=== PATIENT | male | born 1980 | race Caucasian/White ===

== ENCOUNTER 2020-09-26 07:27 | Emergency (ER) | payer OTHER ==
--- NOTE | 2020-09-26 07:50 | EDM.PDOC ---
ED HPI GENERAL MEDICAL PROBLEM - General Chief Complaint: Cardiovascular Problem Stated Complaint: RAPID HEART RATE Time Seen by Provider: 09/26/20 07:43 Source of Information: Reports: Patient History Limitations: Reports: No Limitations - History of Present Illness INITIAL COMMENTS - FREE TEXT/NARRATIVE: 40-year-old male presents to the ED with reports of a central chest pressure heaviness since yesterday afternoon about 1400 hrs. Associated with a feeling of heart racing and he has a pulse oximeter that reports his heart rate as high as into the 130s. It is usually worse with walking and doing a little bit more exertion. Yesterday felt like the slightly dizzy with a rapid heart rate. No think no syncopal events. Of note the patient had COVID-19 illness back in 2019. He has noticed increased heart rate off and on since that time. He has been monitored with a Holter monitor for a week in the past. I believe he is an accurate had an echocardiogram and cardiac work-up and his events always seem to be more of a sinus tachycardia. This morning he has mild central chest discomfort. No radiation to his neck back shoulders. He has some chronic cervical neck pain that radiates into his right superior shoulder along the superior portion of the trapezius. No nausea vomiting or diarrhea. Eats a nice regular diet. Does not use any dietary stimulants such as caffeine drinks etc. He states when he placed his pulse oximeter this morning when he woke up his heart rate was as high as 130 at home. Therefore he elected to come into the ED. he denies any fever chills cough or shortness of breath. Onset: Other (Is off and on since COVID-19 illness and January of this year.) Duration: Chronic, Intermittent, Waxing/Waning Location: Reports: Chest (Feeling of rapid heart rate up as high as 130s to 140s.) Quality: Reports: Ache, Pressure (Associated central chest ache pressure discomfort) Severity: Moderate (that comes and goes.) Improves with: Reports: None Worsens with: Reports: None Context: Denies: Activity, Exercise (Nothing he seems to do makes it better or worse.), Lifting, Sick Contact, Trauma, Other Associated Symptoms: Reports: Other ([place] a little dizzy yesterday with his heart going fast.). Denies: No Other Symptoms, Confusion, Chest Pain, Cough, cough w sputum, Diaphoresis, Fever/Chills, Headaches, Loss of Appetite, Malaise, Nausea/Vomiting, Rash, Seizure, Shortness of Breath, Syncope Treatments CONTINUITY COORDINATOR: Reports: Other (see below) (None.) Chest Pain Score (Numeric/FACES): 2 - Related Data Allergies Allergy/AdvReac Type Severity Reaction Status Date / Time No Known Allergies Allergy Verified 09/26/20 07:37 Home Meds: Home Meds Mesalamine [Apriso] 1,500 mg PO DAILY 10/07/18 [History] Past Medical History HEENT History: Reports: Allergic Rhinitis Cardiovascular History: Reports: Other (See Below) Other Cardiovascular History: Tachycardia since getting COVID in January 2020. Respiratory History: Reports: None Gastrointestinal History: Reports: Other (See Below) Other Gastrointestinal History: Ulcerative colitis--takes mesalamine for this. Genitourinary History: Reports: None, Other (See Below) TESTING SPECIALIST History: Reports: None Musculoskeletal History: Reports: Other (See Below) Other Musculoskeletal History: Carpal tunnel syndrome Neurological History: Reports: None Psychiatric History: Reports: PTSD Endocrine/Metabolic History: Reports: None Hematologic History: Reports: None Immunologic History: Reports: None Oncologic (Cancer) History: Reports: None Dermatologic History: Reports: None - Past Surgical History HEENT Surgical History: Reports: Tonsillectomy Male Surgical History: Reports: Vasectomy Musculoskeletal Surgical History: Reports: Carpal Tunnel Social & Family History - Tobacco Use Tobacco Use Status *Q: Never Tobacco User - Caffeine Use Caffeine Use: Reports: None - Recreational Drug Use Recreational Drug Use: No - Living Situation & Occupation Living situation: Reports: Occupation: Employed (Self-employed.) ED ROS GENERAL - Review of Systems Review Of Systems: See Below Constitutional: Denies: Fever, Chills, Malaise, Weakness, Fatigue, Decreased Appetite, Weight Loss HEENT: Reports: No Symptoms Respiratory: Reports: No Symptoms. Denies: Shortness of Breath, Wheezing, Cough, Sputum Cardiovascular: Reports: Chest Pain, Lightheadedness, Palpitations (He is aware of rapid heart rate throughout the day.). Denies: Blood Pressure Problem (Intermittent central chest pressure discomfort.), Claudication, Dyspnea on Exertion, Edema (Associate with rapid heart rate yesterday.), Orthopnea Endocrine: Reports: No Symptoms GI/Abdominal: Reports: No Symptoms : Reports: No Symptoms Musculoskeletal: Reports: Neck Pain (Cervical neck pain that radiates towards his right upper shoulder across the top of his trapezius muscle.) Skin: Reports: No Symptoms Neurological: Reports: No Symptoms Psychiatric: Reports: No Symptoms Hematologic/Lymphatic: Reports: No Symptoms Immunologic: Reports: No Symptoms ED EXAM, GENERAL - Physical Exam Exam: See Below Exam Limited By: No Limitations General Appearance: Alert, WD/WN, Mild Distress (Oddly anxious.), Other (Temperature is 36.3 heart rate 103 in sinus respiratory to 16 BP 127/91 with a pulse ox of 98% room air.) Eye Exam: Bilateral Eye: Normal Inspection, PERRL Throat/Mouth: Normal Inspection, Normal Lips, Normal Oropharynx Head: Atraumatic, Normocephalic Neck: Normal Inspection, Supple, Non-Tender, Full Range of Motion. No: Carotid Bruit, Lymphadenopathy (L), Lymphadenopathy (R), Thyromegaly Respiratory/Chest: No Respiratory Distress, Lungs Clear, Normal Breath Sounds, No Accessory Muscle Use, Chest Non-Tender, Other (Evidence of previous fracture right clavicle) Cardiovascular: Normal Peripheral Pulses (.), Regular Rate, Rhythm, No Edema, No Gallop, No Murmur, No Rub, Tachycardia (The time I seen him his heart rate was down to 98/min.) Peripheral Pulses: 3+: Carotid (L), Carotid (R), Posterior Tibial (L), Posterior Tibial (R), Dorsalis Pedis (L), Dorsalis Pedis (R) GI/Abdominal: Normal Bowel Sounds, Soft, Non-Tender, No Organomegaly, No Abnormal Bruit, No Mass, Pelvis Stable, Other (A void abdomen). No: Guarding, R igid, Rebound Back Exam: Normal Inspection, Full Range of Motion. No: CVA Tenderness (L), CVA Tenderness (R) Extremities: Normal Inspection, Normal Range of Motion, Non-Tender Neurological: Alert, Oriented, CN II-XII Intact, Normal Cognition Psychiatric: Normal Affect, Normal Mood, Anxious (Perhaps mildly anxious.) Skin Exam: Warm, Dry, Intact, Normal Color, No Rash #1 Interpretation EKG Date: 09/26/20 Time: 07:35 Rhythm: NSR Rate (Beats/Min): 99 Morse: LAD-Left Morse Deviation (-45 degrees) P-Wave: Enlarged (Consider left atrial hypertrophy.) QRS: Other (RSR prime wave V1 V2 consider normal variant. Early R wave transition consider septal hypertrophy pattern.) ST-T: Depressed (There is ST segment depression in leads II, III and aVF concerning for possible inferior wall ischemic change. T wave inversion in aVL nonspecific) EKG Interpretation Comments: Abnormal ECG Course - Vital Signs Last Recorded V/S: Last Vital Signs Temp 36.3 C 09/26/20 07:33 Pulse 98 09/26/20 08:15 Resp 16 09/26/20 07:33 BP 105/76 09/26/20 08:15 Pulse Ox 98 09/26/20 07:33 - Orders/Labs/Meds Orders: Active Orders 24 hr Category Date Time Status EKG 12 Lead [EKG Documentation Completion] [RC] STAT Care 09/26/20 07:38 Active CXR [Chest 1V Frontal] [CR] Stat Exams 09/26/20 07:37 Taken FREE T3 [REF] Stat Lab 09/26/20 07:35 Received Labs: Laboratory Tests 09/26/20 09/26/20 09/26/20 Range/Units 07:35 07:35 07:35 WBC 4.88 (4.23-9.07) K/mm3 RBC 5.08 (4.63-6.08) M/mm3 Hgb 15.5 (13.7-17.5) gm/dl Hct 43.8 (40.1-51.0) % MCV 86.2 (79.0-92.2) fl MCH 30.5 (25.7-32.2) pg MCHC 35.4 (32.2-35.5) g/dl RDW Std Deviation 37.9 (35.1-43.9) fL Plt Count 183 (163-337) K/mm3 MPV 10.6 (9.4-12.3) fl Neut % (Auto) 66.0 (34.0-67.9) % Lymph % (Auto) 23.4 (21.8-53.1) % Harris % (Auto) 8.6 (5.3-12.2) % Eos % (Auto) 1.6 (0.8-7.0) Baso % (Auto) 0.4 (0.1-1.2) % Neut # (Auto) 3.22 (1.78-5.38) K/mm3 Lymph # (Auto) 1.14 L (1.32-3.57) K/mm3 Harris # (Auto) 0.42 (0.30-0.82) K/mm3 Eos # (Auto) 0.08 (0.04-0.54) K/mm3 Baso # (Auto) 0.02 (0.01-0.08) K/mm3 Sodium 139 (136-145) mEq/L Potassium 4.2 (3.5-5.1) mEq/L Chloride 101 (98-107) mEq/L Carbon Dioxide 29 (21-32) mEq/L Anion Gap 13.2 (5-15) BUN 18 (7-18) mg/dL Creatinine 1.1 (0.7-1.3) mg/dL Est Cr Clr Drug Dosing 75.77 mL/min Estimated GFR (MDRD) > 60 (>60) mL/min BUN/Creatinine Ratio 16.4 (14-18) Glucose 99 (74-106) mg/dL Calcium 9.3 (8.5-10.1) mg/dL Magnesium (1.8-2.4) mg/dl Total Bilirubin 1.0 (0.2-1.0) mg/dL AST 23 (15-37) U/L ALT 36 (16-63) U/L Alkaline Phosphatase 90 (46-116) U/L CK-MB (CK-2) (0-3.6) ng/ml Troponin I < 0.017 (0.00-0.056) ng/mL C-Reactive Protein (<1.0) mg/dL NT-Pro-B Natriuret Pep 20 (0-125) pg/mL Total Protein 7.7 (6.4-8.2) g/dl Albumin 4.3 (3.4-5.0) g/dl Globulin 3.4 gm/dL Albumin/Globulin Ratio 1.3 (1-2) Free T4 (0.76-1.46) ng/dL TSH 3rd Generation (0.358-3.74) uIU/mL 09/26/20 Range/Units 07:35 WBC (4.23-9.07) K/mm3 RBC (4.63-6.08) M/mm3 Hgb (13.7-17.5) gm/dl Hct (40.1-51.0) % MCV (79.0-92.2) fl MCH (25.7-32.2) pg MCHC (32.2-35.5) g/dl RDW Std Deviation (35.1-43.9) fL Plt Count (163-337) K/mm3 MPV (9.4-12.3) fl Neut % (Auto) (34.0-67.9) % Lymph % (Auto) (21.8-53.1) % Harris % (Auto) (5.3-12.2) % Eos % (Auto) (0.8-7.0) Baso % (Auto) (0.1-1.2) % Neut # (Auto) (1.78-5.38) K/mm3 Lymph # (Auto) (1.32-3.57) K/mm3 Harris # (Auto) (0.30-0.82) K/mm3 Eos # (Auto) (0.04-0.54) K/mm3 Baso # (Auto) (0.01-0.08) K/mm3 Sodium (136-145) mEq/L Potassium (3.5-5.1) mEq/L Chloride (98-107) mEq/L Carbon Dioxide (21-32) mEq/L Anion Gap (5-15) BUN (7-18) mg/dL Creatinine (0.7-1.3) mg/dL Est Cr Clr Drug Dosing mL/min Estimated GFR (MDRD) (>60) mL/min BUN/Creatinine Ratio (14-18) Glucose (74-106) mg/dL Calcium (8.5-10.1) mg/dL Magnesium 2.0 (1.8-2.4) mg/dl Total Bilirubin (0.2-1.0) mg/dL AST (15-37) U/L ALT (16-63) U/L Alkaline Phosphatase (46-116) U/L CK-MB (CK-2) 1.1 (0-3.6) ng/ml Troponin I (0.00-0.056) ng/mL C-Reactive Protein 2.3 H* (<1.0) mg/dL NT-Pro-B Natriuret Pep (0-125) pg/mL Total Protein (6.4-8.2) g/dl Albumin (3.4-5.0) g/dl Globulin gm/dL Albumin/Globulin Ratio (1-2) Free T4 0.96 (0.76-1.46) ng/dL TSH 3rd Generation 1.140 (0.358-3.74) uIU/mL - Radiology Interpretation Free Text/Narrative:: 40-year-old male presents to the ED for evaluation of central chest heaviness fo r the last day and a half. Associate with tachycardia. It appears to be sinus tachycardia on the monitor. He reports he has had problems with heart rate elevation since having COVID-19 illness in January of the last year. He has had "Holter monitors placed in the past showing only sinus tachycardia. He is aware that his heart races at times. Yesterday it made him feel little lightheaded and dizzy. Denies cough or sputum production. Exam reveals clear lung lujan. No thyromegaly heart was sinus at 99/min. The ECG does suggest RSR prime waves V1 V2 consider normal variant. He has a early R wave transition suspect suggesting septal hypertrophy pattern however he has a very thin chest. He does have ST segment depression in the V leads II, III and aVF which may represent a repolarization abnormality versus ischemia. Plan he will have a cardiac work- up including cardiac markers serum magnesium and thyroid function studies. 1 view chest to be done. - Re-Assessments/Exams Free Text/Narrative Re-Assessment/Exam: 09/26/20 08:06 chest x-ray done portably reveals hyperinflated lung lujan. Prominent pulmonary arteries per portable technique. Lungs are clear with no consolidation. No cardiomegaly old fracture appreciated the right clavicle. 09/26/20 08:29 White count came back at 4.88. Auto differential shows 66% neutrophils. Hemoglobin is 15.5 with hematocrit of 43.8 platelet count 183,000. Sodium 139 with a potassium of 4.2. Chloride 101 with a bicarb of 29. Anion gap is 13.2. BUN is 18 with a creatinine of 1.1 GFR is greater than 60. Glucose is 99 calcium is 9.3 liver function is normal. Troponin I is less than 0.017. BNP is 20. Total protein is 7.7 with an albumin fraction of 4.3. 09/26/20 08:50 C-reactive protein is mildly elevated at 2.3. TSH is 1.14 magnesium is 2.0. I have discussed the findings with the patient and indicate that I could find no abnormalities once again. His tachycardia remains unexp lainable at this point time. It is possible it is still related to a form of viral myocarditis precipitated by COVID-19 illness in January of last year. At this time no treatment is otherwise indicated. His blood pressure is 106/80. He would not tolerate beta-blockade at this time. Patient reassured to carry on with all activities as per his norm. Presumed the patient has had a echocardiogram in the last 6 months if not it probably should be done due to changes noted on ECG. Departure - Departure Time of Disposition: 08:59 Disposition: Home, Self-Care 01 Reason for Transfer *Q: Other Condition: Fair Clinical Impression: Non-cardiac chest pain, Tachycardia determined by examination of pulse Instructions: Sinus Tachycardia Referrals: Sherron Sterling MD [Primary Care Provider] - Forms: ED Department Discharge Additional Instructions: Evaluation in the emergency room this morning in regards to his persistent gladys tral chest discomfort associated with a feeling of heart beating fast in your chest and confirmed by pulse oximetry at home. This is been going on and off since development of COVID-19 illness in January of this year. Examination revealed clear lung lujan with a heart rate of 99/min on my exam. Oxygen saturations were 100%. Chest x-ray is completely normal ECG reveals no significant abnormalities. Lab tests including thyroid function have been done and no abnormalities were detected. 2 of the thyroid tests are send outs and will be available in 3 days time you will be called if either one of them come back elevated as they could be a potential cause of recurrent fast beating heart. Otherwise try and ignore symptoms and continue all activities as per your normal. Minimize caffeine and alcohol intake as they both irritate the heart. Avoid decongestants and of course energy drinks. Follow-up with your personal care physician if any further problems occur Sepsis Event Note (ED) - Evaluation Sepsis Screening Result: No Definite Risk - Focused Exam Vital Signs: Vital Signs Temp Pulse Resp BP Pulse Ox 09/26/20 08:15 98 105/76 09/26/20 07:33 36.3 C 103 H 16 127/91 H 98 - My Orders Last 24 Hours: My Active Orders 09/26/20 07:35 FREE T3 [REF] Stat 09/26/20 07:37 CXR [Chest 1V Frontal] [CR] Stat 09/26/20 07:38 EKG 12 Lead [EKG Documentation Completion] [RC] STAT - Assessment/Plan Last 24 Hours: My Active Orders 09/26/20 07:35 FREE T3 [REF] Stat 09/26/20 07:37 CXR [Chest 1V Frontal] [CR] Stat 09/26/20 07:38 EKG 12 Lead [EKG Documentation Completion] [RC] STAT
--- NOTE | 2020-09-26 09:22 | CR ---
PROCEDURE INFORMATION: Exam: XR Chest, 1 View Exam date and time: 09/26/2020 7:27 AM Age: 40 years old Clinical indication: Chest pain; Patient HX: Rapid hr, covid back in January TECHNIQUE: Imaging protocol: XR of the chest Views: 1 view. COMPARISON: DX Chest 2V 03/28/2020 11:41 AM FINDINGS: Lungs: Unremarkable. No consolidation. Pleural space: Unremarkable. No pleural effusion. No pneumothorax. Heart/Mediastinum: Unremarkable. No cardiomegaly. Bones/joints: Old fracture of the right clavicle. IMPRESSION: No acute findings. Thank you for allowing us to participate in the care of your patient. Dictated and Authenticated by: Theresa Beatty MD 09/26/2020 8:59 AM Central Time ([place] & [place]) [facility]ENTERLisa
== END 2020-09-26 09:12 | disposition home or self-care (01) ==
LOC: JD.ED 07:27
DX: R07.89 Other chest pain (principal); R00.0 Tachycardia, unspecified; M54.2 Cervicalgia
CPT/HCPCS: 36415; 71045; 71045-26; 80053; 82553; 83735; 83880; 84439; 84443; 84481; 84484; 85025; 86140; 93005; 99285-25